=== PATIENT | female | born 1965 | race Caucasian/White ===

== ENCOUNTER 2023-04-11 01:59 | Emergency (ER) | payer BC ==
[2023-04-11] MEDS ORDERED: DEXAMETHASONE SOD PHOSPHATE 10 MG/1 ML VIAL ONE (02:12)
[2023-04-11] MEDS: DEXAMETHASONE SOD PHOSPHATE 10 MG/1 ML VIAL IVPUSH ONE (02:15)
[2023-04-11 02:21] VITALS: RESP 18; TEMP 97.7; BMI 35.6
[2023-04-11] MEDS: ONDANSETRON 4 MG/2 ML VIAL IVPUSH ONE (02:30)
[2023-04-11] MEDS ORDERED: ONDANSETRON 4 MG/2 ML VIAL ONE (02:33)
[2023-04-11 03:51] VITALS: BP 139/87; PULSE 76
== END 2023-04-11 04:59 | disposition home or self-care (01) ==
LOC: FER 01:59
PROC: 3E033GC Introduction of Other Therapeutic Substance into Peripheral Vein, Percutaneous Approach (ICD-10-PCS; principal; 2023-04-11)
PROC: 3E033GC Introduction of Other Therapeutic Substance into Peripheral Vein, Percutaneous Approach (ICD-10-PCS; 2023-04-11)
PROC: 3E033GC Introduction of Other Therapeutic Substance into Peripheral Vein, Percutaneous Approach (ICD-10-PCS; 2023-04-11)
DX: T78.40XA Allergy, unspecified, initial encounter (principal); L29.9 Pruritus, unspecified
CPT/HCPCS: 99284-25; J1100

== ENCOUNTER 2023-04-20 12:20 | Emergency (ER) | payer BC ==
[2023-04-20 12:40] VITALS: BMI 35.4
[2023-04-20 13:35] LABS: HEMATOCRIT 42.3 % (32.4-45.2); HEMOGLOBIN 14.2 G/dL (10.7-15.3); MCH 29.1 pg (25.7-33.7); MCHC 33.7 g/dl (32.0-36.0); MEAN CELL VOLUME 86.6 fl (80-96); MEAN PLT VOLUME 8.8 fl (7.5-11.1); PLATELET COUNT 251.4 10^3/uL (134-434); RBC 4.89 10^6/uL (3.60-5.2); RDW 15.2 % (11.6-15.6); WHITE BLOOD COUNT 14.8 10^3/uL (4.0-10.8)
[2023-04-20 13:38] LABS: PLATELET ESTIMATE ADEQUATE
[2023-04-20 13:44] LABS: ALBUMIN 4.3 g/dl (3.4-5.0); BILIRUBIN,TOTAL 0.5 mg/dl (0.2-1); CALCIUM 9.5 mg/dl (8.5-10.1); CREATININE 0.9 mg/dl (0.6-1.3); POTASSIUM 3.5 mmol/L (3.5-5.1); TOT PROT 6.4 g/dl (6.4-8.2)
[2023-04-20 14:03] VITALS: BP 149/73; PULSE 82; RESP 17; TEMP 97.5
== END 2023-04-20 14:38 | disposition home or self-care (01) ==
LOC: FER 12:20
PROC: 3E033GC Introduction of Other Therapeutic Substance into Peripheral Vein, Percutaneous Approach (ICD-10-PCS; principal; 2023-04-20)
DX: T78.40XA Allergy, unspecified, initial encounter (principal); L29.9 Pruritus, unspecified; J39.2 Other diseases of pharynx
CPT/HCPCS: 36415; 80053; 82962; 85025; 99284-25